=== PATIENT | male | born 1960 | race Caucasian/White ===

== ENCOUNTER 2016-05-27 07:21 | Emergency (ER) | payer MEDICAID ==
[~2016-05-27] VITALS: Ht 175.3 cm; Wt 79.9 kg
[~2016-05-27 07:21] MED LIST: OMEP-110 PO
[2016-05-27] MEDS ORDERED: IBUPROFEN 200 MG TABLET PO ONE (08:30)
[2016-05-27 08:44] LABS: HEMOGLOBIN 15.5 g/dL (13.7-18.0)
[2016-05-27 08:55] LABS: BLOOD UREA NITROGEN 21 mg/dL (7-18)
[2016-05-27] MEDS ORDERED: IBUPROFEN 200 MG TABLET ONE (09:05)
[2016-05-27 09:51] VITALS: BP 129/92
== END 2016-05-27 09:53 | disposition home or self-care (01) ==
LOC: ED 08:21
DX: G43.019 Migraine without aura, intractable, without status migrainosus (principal); E11.65 Type 2 diabetes mellitus with hyperglycemia; I10 Essential (primary) hypertension; K21.9 Gastro-esophageal reflux disease without esophagitis; Z88.1 Allergy status to other antibiotic agents; Z88.8 Allergy status to other drugs, medicaments and biological substances
CPT/HCPCS: 36415; 80048; 82040; 85025; 93005; 99285

== ENCOUNTER 2016-07-26 05:48 | Emergency (ER) | payer MEDICAID ==
[~2016-07-26] VITALS: Ht 182.9 cm; Wt 73.6 kg
[2016-07-26 05:49] VITALS: BP 149/107
== END 2016-07-26 06:37 | disposition home or self-care (01) ==
LOC: ED 06:13
DX: H61.21 Impacted cerumen, right ear (principal); E11.9 Type 2 diabetes mellitus without complications; I10 Essential (primary) hypertension; R51 Headache; G89.29 Other chronic pain; Z88.1 Allergy status to other antibiotic agents
CPT/HCPCS: 99281

== ENCOUNTER 2016-08-12 05:37 | Emergency (ER) | payer MEDICAID ==
[~2016-08-12] VITALS: Ht 182.9 cm; Wt 74.3 kg
[2016-08-12 05:38] VITALS: BP 148/92
== END 2016-08-12 06:28 | disposition home or self-care (01) ==
LOC: ED 06:15
DX: H66.002 Acute suppurative otitis media without spontaneous rupture of ear drum, left ear (principal); I10 Essential (primary) hypertension; K21.9 Gastro-esophageal reflux disease without esophagitis; Z87.891 Personal history of nicotine dependence
CPT/HCPCS: 99283

== ENCOUNTER 2016-09-04 08:48 | Emergency (ER) | payer MEDICAID ==
[~2016-09-04] VITALS: Ht 182.9 cm; Wt 73.5 kg
[2016-09-04 08:49] VITALS: BP 137/88
== END 2016-09-04 09:58 | disposition home or self-care (01) ==
LOC: ED 09:45
DX: H60.92 Unspecified otitis externa, left ear (principal); H60.12 Cellulitis of left external ear; E11.65 Type 2 diabetes mellitus with hyperglycemia; I10 Essential (primary) hypertension
CPT/HCPCS: 99283

== ENCOUNTER 2017-03-20 21:34 | Emergency (ER) | payer MEDICAID ==
[~2017-03-20] VITALS: Ht 182.9 cm; Wt 69.0 kg
[2017-03-20 23:11] LABS: BASOPHILS # (AUTO) 0.05 x10^3/uL (0-0.1); BASOPHILS % (AUTO) 1 % (0-1); EOSINOPHILS # (AUTO) 0.05 x10^3/uL (0-0.4); EOSINOPHILS % (AUTO) 1 % (1-7); LYMPHOCYTES # (AUTO) 1.84 x10^3/uL (1-3.4); LYMPHOCYTES % (AUTO) 21 % (22-44); MD NO; MEAN CORPUSCULAR HEMOGLOBIN 29.1 pg (27.5-34.5); MEAN CORPUSCULAR HGB CONC 33.5 g/dL (33.2-36.2); MEAN CORPUSCULAR VOLUME 87.1 fL (81-97); MEAN PLATELET VOLUME 6.7 fL (7.4-10.4); MONOCYTES # (AUTO) 0.62 x10^3/uL (0.2-0.8); MONOCYTES % (AUTO) 7 % (2-9); NEUTROPHILS % (AUTO) 71 % (42-75); PLATELET COUNT 336 x10^3/uL (130-400); RED BLOOD COUNT 5.28 x10^6/uL (4.38-5.82); RED CELL DISTRIBUTION WIDTH 13.9 % (9.4-14.8)
[2017-03-20 23:21] LABS: CHLORIDE 98 mmol/L (98-107)
[2017-03-20 23:22] LABS: ALANINE AMINOTRANSFERASE 54 U/L (12-78); ALBUMIN 3.4 g/dL (3.4-5.0); ANION GAP 12 mmol/L (5-15); CALCIUM 9.1 mg/dL (8.5-10.1); CREATININE 0.91 mg/dL (0.7-1.3)
[2017-03-20 23:24] LABS: ALKALINE PHOSPHATASE 111 U/L (45-117); BILIRUBIN,TOTAL 0.5 mg/dL (0.2-1.0); TOTAL PROTEIN 7.9 g/dL (6.4-8.2)
[2017-03-20] MEDS ORDERED: SODIUM CHLORIDE 0.9% 1,000ML IVBOLUS ONE (23:30)
[2017-03-20] MEDS ORDERED: ONDANSETRON 2MG/ML, 2ML IVPush ONE (23:30)
[2017-03-20] MEDS ORDERED: ONDANSETRON 2MG/ML, 2ML ONE (23:44)
[2017-03-21 01:56] VITALS: BP 140/78
== END 2017-03-21 01:59 | disposition home or self-care (01) ==
LOC: ED 23:36
DX: R42 Dizziness and giddiness (principal); R11.0 Nausea; E11.9 Type 2 diabetes mellitus without complications
CPT/HCPCS: 36415; 80053; 85025; 93005; 96361; 96374; 99285; J2405; J7030

== ENCOUNTER 2017-04-27 03:22 | Emergency (ER) | payer MEDICAID ==
[~2017-04-27] VITALS: Ht 180.3 cm; Wt 59.0 kg
[2017-04-27 04:51] LABS: BASOPHILS # (AUTO) 0.03 x10^3/uL (0-0.1); BASOPHILS % (AUTO) 0 % (0-1); EOSINOPHILS # (AUTO) 0.03 x10^3/uL (0-0.4); EOSINOPHILS % (AUTO) 0 % (1-7); LYMPHOCYTES # (AUTO) 1.36 x10^3/uL (1-3.4); LYMPHOCYTES % (AUTO) 17 % (22-44); MD NO; MEAN CORPUSCULAR HEMOGLOBIN 29.6 pg (27.5-34.5); MEAN CORPUSCULAR HGB CONC 34.2 g/dL (33.2-36.2); MEAN CORPUSCULAR VOLUME 86.4 fL (81-97); MONOCYTES # (AUTO) 0.47 x10^3/uL (0.2-0.8); MONOCYTES % (AUTO) 6 % (2-9); NEUTROPHILS # (AUTO) 5.99 x10^3/uL (1.8-6.8); NEUTROPHILS % (AUTO) 76 % (42-75); PLATELET COUNT 272 x10^3/uL (130-400); RED BLOOD COUNT 5.36 x10^6/uL (4.38-5.82); RED CELL DISTRIBUTION WIDTH 13.9 % (9.4-14.8)
[2017-04-27 05:01] LABS: ALANINE AMINOTRANSFERASE 52 U/L (12-78); ALBUMIN 3.7 g/dL (3.4-5.0); ANION GAP 10 mmol/L (5-15); CALCIUM 9.1 mg/dL (8.5-10.1); CHLORIDE 100 mmol/L (98-107); CREATININE 0.89 mg/dL (0.7-1.3)
[2017-04-27 05:04] LABS: ALKALINE PHOSPHATASE 121 U/L (45-117); BILIRUBIN,TOTAL 0.7 mg/dL (0.2-1.0); TOTAL PROTEIN 7.7 g/dL (6.4-8.2)
[2017-04-27 05:13] LABS: TROPONIN I < 0.015 ng/mL (0.000-0.045)
[2017-04-27 05:58] VITALS: BP 118/74
== END 2017-04-27 06:07 | disposition home or self-care (01) ==
LOC: ED 03:57
DX: R55 Syncope and collapse (principal); E11.65 Type 2 diabetes mellitus with hyperglycemia; G89.11 Acute pain due to trauma; Z79.899 Other long term (current) drug therapy
CPT/HCPCS: 36415; 80053; 80307; 84484; 85025; 93005; 99285

== ENCOUNTER 2017-05-01 17:32 | Emergency (ER) | payer MEDICAID ==
[~2017-05-01] VITALS: Ht 180.3 cm; Wt 68.2 kg
[2017-05-01 19:11] VITALS: BP 129/85
== END 2017-05-01 19:38 | disposition home or self-care (01) ==
LOC: ED 19:32
DX: S02.2XXA Fracture of nasal bones, initial encounter for closed fracture (principal); S70.02XA Contusion of left hip, initial encounter; K21.9 Gastro-esophageal reflux disease without esophagitis; G43.909 Migraine, unspecified, not intractable, without status migrainosus; I10 Essential (primary) hypertension; E11.9 Type 2 diabetes mellitus without complications; F17.200 Nicotine dependence, unspecified, uncomplicated; Y04.0XXA Assault by unarmed brawl or fight, initial encounter; Y93.89 Activity, other specified; Y99.8 Other external cause status; Y92.89 Other specified places as the place of occurrence of the external cause
CPT/HCPCS: 70450; 70486; 99284

== ENCOUNTER 2017-05-10 07:30 | Emergency (ER) | payer MEDICAID ==
[~2017-05-10] VITALS: Ht 180.3 cm; Wt 69.9 kg
[2017-05-10 07:32] VITALS: BP 150/88
[2017-05-10] MEDS ORDERED: METF500T4 PO (07:55)
== END 2017-05-10 09:24 | disposition home or self-care (01) ==
LOC: ED 08:02
DX: S63.641A Sprain of metacarpophalangeal joint of right thumb, initial encounter (principal); I10 Essential (primary) hypertension; G43.909 Migraine, unspecified, not intractable, without status migrainosus; K21.9 Gastro-esophageal reflux disease without esophagitis; E11.9 Type 2 diabetes mellitus without complications; F17.200 Nicotine dependence, unspecified, uncomplicated; W01.0XXA Fall on same level from slipping, tripping and stumbling without subsequent striking against object, initial encounter; Y93.89 Activity, other specified; Y92.89 Other specified places as the place of occurrence of the external cause; Y99.8 Other external cause status
CPT/HCPCS: 99284

== ENCOUNTER 2017-07-07 05:10 | Inpatient (IN) | payer MEDICAID ==
[~2017-07-07] VITALS: Ht 167.6 cm; Wt 61.4 kg
[~2017-07-07 05:10] MED LIST changes: +METF500T4 PO
[2017-07-07] MEDS ORDERED: LORazepam 2 MG/ML, 1ML ONE (05:58)
[2017-07-07] MEDS ORDERED: SODIUM CHLORIDE FLUSH 10ML SYR IVF ONE (06:00)
[2017-07-07] MEDS ORDERED: LORazepam 2 MG/ML, 1ML IVPush ONE (06:00)
[2017-07-07 06:01] LABS: BASOPHILS # (AUTO) 0.01 x10^3/uL (0-0.1); BASOPHILS % (AUTO) 0 % (0-1); EOSINOPHILS % (AUTO) 0 % (1-7); LYMPHOCYTES # (AUTO) 0.69 x10^3/uL (1-3.4); LYMPHOCYTES % (AUTO) 7 % (22-44); MD NO; MEAN CORPUSCULAR HEMOGLOBIN 29.6 pg (27.5-34.5); MEAN CORPUSCULAR HGB CONC 34.2 g/dL (33.2-36.2); MEAN CORPUSCULAR VOLUME 86.5 fL (81-97); MONOCYTES # (AUTO) 0.21 x10^3/uL (0.2-0.8); MONOCYTES % (AUTO) 2 % (2-9); NEUTROPHILS # (AUTO) 8.97 x10^3/uL (1.8-6.8); NEUTROPHILS % (AUTO) 91 % (42-75); PLATELET COUNT 283 x10^3/uL (130-400); RED BLOOD COUNT 5.05 x10^6/uL (4.38-5.82); RED CELL DISTRIBUTION WIDTH 15.3 % (9.4-14.8)
[2017-07-07 06:16] LABS: ALANINE AMINOTRANSFERASE 49 U/L (12-78); ALBUMIN 4.3 g/dL (3.4-5.0); ANION GAP 13 mmol/L (5-15); CALCIUM 9.5 mg/dL (8.5-10.1); CHLORIDE 102 mmol/L (98-107)
[2017-07-07 06:21] LABS: ALKALINE PHOSPHATASE 100 U/L (45-117); BILIRUBIN,TOTAL 0.6 mg/dL (0.2-1.0); CREATININE 0.99 mg/dL (0.7-1.3); TOTAL PROTEIN 8.5 g/dL (6.4-8.2); TROPONIN I < 0.015 ng/mL (0.000-0.045)
[2017-07-07] MEDS ORDERED: LORazepam 0.5MG TABLET PO PRN (09:30)
[2017-07-07] MEDS ORDERED: LORazepam 1MG TABLET PO PRN ×2 (09:30)
[2017-07-07] MEDS ORDERED: LORazepam 2 MG/ML, 1ML IV PRN (09:30)
[2017-07-07] MEDS: SODIUM CHLORIDE 0.9% 1,000 ML IV SCH (11:07)
[2017-07-07] MEDS: ENOXAPARIN 40 MG/0.4 ML SQ SCH (11:37)
[2017-07-07] MEDS: LORazepam 2 MG/ML, 1ML IV PRN ×4 (11:37→19:59)
[2017-07-07 12:08] LABS: AMPHETAMINE SCREEN, URINE Positive (Negative); BARBITURATE SCREEN, URINE Negative (Negative); BENZODIAZEPINE SCREEN, URINE Negative (Negative); CANNABINOID SCREEN, URINE Negative (Negative); COCAINE SCREEN, URINE Negative (Negative); METHADONE SCREEN, URINE Negative (Negative); OPIATE SCREEN, URINE Negative (Negative)
[2017-07-07 17:28] VITALS: BP 132/95
[2017-07-07] MEDS: CARVEDILOL 6.25 MG TABLET PO SCH (18:35)
[2017-07-07 19:00] VITALS: BP 146/95
[2017-07-08] MEDS: SODIUM CHLORIDE 0.9% 1,000 ML IV SCH ×2 (01:18→15:52)
[2017-07-08 02:52] VITALS: BP 118/87
[2017-07-08] MEDS: CARVEDILOL 6.25 MG TABLET PO SCH ×2 (05:52→17:13)
[2017-07-08 07:00] VITALS: BP 145/93
[2017-07-08] MEDS: ENOXAPARIN 40 MG/0.4 ML SQ SCH (10:41)
[2017-07-08 13:23] VITALS: BP 123/81
[2017-07-08] MEDS ORDERED: MAGNESIUM CITRATE 300ML ORAL SOL PO ONE (17:00)
[2017-07-08] MEDS ORDERED: ZOLPIDEM 5MG TABLET PO PRN (17:00)
[2017-07-08] MEDS: ACETAMINOPHEN 325 MG TABLET PO PRN (17:13)
[2017-07-08 19:05] VITALS: BP 101/66
[2017-07-09 02:22] VITALS: BP 104/66
[2017-07-09] MEDS: SODIUM CHLORIDE 0.9% 1,000 ML IV SCH (05:39)
[2017-07-09] MEDS: CARVEDILOL 6.25 MG TABLET PO SCH (05:39)
[2017-07-09 07:45] VITALS: BP 140/70
[2017-07-09] MEDS ORDERED: ALPR0.254 PO (10:00)
[2017-07-09] MEDS ORDERED: CARV6.2512 PO (10:00)
[2017-07-09] MEDS: ENOXAPARIN 40 MG/0.4 ML SQ SCH (11:00)
[2017-07-09] MEDS: ACETAMINOPHEN 325 MG TABLET PO PRN (11:22)
[2017-07-09 14:32] VITALS: BP 130/95
== END 2017-07-09 14:50 | disposition home or self-care (01) | DRG 312 ==
LOC: ED 07:19 → EDIP 09:04 → 4WST 10:45 → DCLOUNGE 07-09 14:39
PROVIDERS: ADMIT Internal Medicine Pulmonary Disease; ATTEND Internal Medicine Pulmonary Disease
DX: R55 Syncope and collapse (principal); H70.92 Unspecified mastoiditis, left ear; F15.129 Other stimulant abuse with intoxication, unspecified; F10.239 Alcohol dependence with withdrawal, unspecified; E11.9 Type 2 diabetes mellitus without complications; J32.9 Chronic sinusitis, unspecified; F17.200 Nicotine dependence, unspecified, uncomplicated; F41.9 Anxiety disorder, unspecified; K21.9 Gastro-esophageal reflux disease without esophagitis; K59.00 Constipation, unspecified; I10 Essential (primary) hypertension
CPT/HCPCS: 36415; 70450; 74022; 80053; 80307; 83690; 84484; 85025; 93005; 96372; 96374; 96376; J1650; J2060; J7030

== ENCOUNTER 2017-07-15 04:01 | Emergency (ER) | payer MEDICAID ==
[~2017-07-15] VITALS: Ht 167.6 cm; Wt 66.6 kg
[~2017-07-15 04:01] MED LIST changes: +ALPR0.254 PO; +CARV6.2512 PO
[2017-07-15 04:03] VITALS: BP 142/88
== END 2017-07-15 04:38 | disposition home or self-care (01) ==
LOC: ED 04:35
DX: N48.22 Cellulitis of corpus cavernosum and penis (principal); I10 Essential (primary) hypertension; E11.9 Type 2 diabetes mellitus without complications; K21.9 Gastro-esophageal reflux disease without esophagitis; F17.200 Nicotine dependence, unspecified, uncomplicated
CPT/HCPCS: 99281

== ENCOUNTER 2018-07-03 04:45 | Emergency (ER) | payer MEDICAID ==
[~2018-07-03] VITALS: Ht 170.2 cm; Wt 70.3 kg
[~2018-07-03 04:45] MED LIST changes: +METF500T17 PO; -METF500T4 PO
[2018-07-03 04:48] VITALS: BP 137/100
--- NOTE | 2018-07-03 05:00 | NUR ---
FIRST CONTACT WITH PT. PT FEEL HE HAS A "BACTERIAL OR PARACITIC INFECTION" PT SEES THINS UNDER HIS SKIN. PT HAS DISCHARGE OF PUS ON FACE. PT DENIES FEVER/N/D/V AT THIS TIME. RESPS EVEN AND UNLABORED. AWAITING EDMD ASSESSMENT AT THIS TIME.
--- NOTE | 2018-07-03 05:30 | NUR ---
THIS RN TRIED TO DC. PT STATES " I DON'T WANNA LEAVE." SECURITY PAGED.
--- NOTE | 2018-07-03 05:30 | NUR ---
THIS RN TRIED TO DC. PT STATES " I SON'T WANNA LEAVE." SECURITY PAGED. Addendum: 07/03/18 at 0540 by CAREN THIS RN TRIED TO DC. PT STATES " I DON'T WANNA LEAVE." SECURITY PAGED.
--- NOTE | 2018-07-03 05:40 | NUR ---
PT GIVEN DC INSTRUCTIONS AND SCRIPTS. PT AMB TO DC WITH SECURITY. NO ACUTE DISTRESS AT DC.
== END 2018-07-03 05:42 | disposition home or self-care (01) ==
LOC: ED 05:35
DX: J34.0 Abscess, furuncle and carbuncle of nose (principal); L03.211 Cellulitis of face
CPT/HCPCS: 99283

== ENCOUNTER 2018-08-25 19:10 | Emergency (ER) | payer MEDICAID ==
[~2018-08-25] VITALS: Ht 167.6 cm; Wt 70.9 kg
[2018-08-25 19:13] VITALS: BP 162/95
--- NOTE | 2018-08-25 19:34 | NUR ---
Discharge instructions discussed with patient, prescriptions provided with instruction for use. Patient requests clean clothes, clothing provided from donation locker. Patient ambulates independently with steady gait.
== END 2018-08-25 19:37 | disposition home or self-care (01) ==
LOC: ED 19:30
DX: F15.10 Other stimulant abuse, uncomplicated (principal); Z72.9 Problem related to lifestyle, unspecified; I10 Essential (primary) hypertension; K21.9 Gastro-esophageal reflux disease without esophagitis; E11.9 Type 2 diabetes mellitus without complications; F17.200 Nicotine dependence, unspecified, uncomplicated
CPT/HCPCS: 99283; Q0177